=== PATIENT | female | born 1985 | race Caucasian/White ===

== ENCOUNTER 2019-02-09 17:41 | Emergency (ER) | payer MEDICAID ==
[~2019-02-09] VITALS: Ht 157.5 cm; Wt 79.5 kg
[~2019-02-09 17:41] MED LIST: HYDR-4353 PO; IBUP-1985 PO
[2019-02-09] MEDS ORDERED: ibuprofen tablet 400 MG TABLET PO ONE (19:55)
[2019-02-09 20:03] VITALS: BP 132/79
== END 2019-02-09 20:06 | disposition home or self-care (01) ==
LOC: ER 17:41
DX: M79.641 Pain in right hand (principal); G89.29 Other chronic pain; Z90.49 Acquired absence of other specified parts of digestive tract; Z56.0 Unemployment, unspecified; Z79.899 Other long term (current) drug therapy; W23.0XXA Caught, crushed, jammed, or pinched between moving objects, initial encounter; Y93.89 Activity, other specified; Y92.89 Other specified places as the place of occurrence of the external cause; Y99.8 Other external cause status
CPT/HCPCS: 29125; 73130; 99283

== ENCOUNTER 2020-08-28 16:19 | Inpatient (IN) | payer MEDICAID ==
[~2020-08-28] VITALS: Ht 157.5 cm; Wt 79.1 kg
[2020-08-28] MEDS ORDERED: acetaminophen 325mg tablet PO ONE (16:30)
[2020-08-28] MEDS ORDERED: CefTRIAXone 2gm/D5W 50ml BAG 50 ML IV ONE (16:40)
[2020-08-28] MEDS ORDERED: vancomycin/NS 1 GM ADD-VANTAGE 250 ML IV ONE (16:40)
[2020-08-28] MEDS ORDERED: ACET-2119 PO (17:31)
[2020-08-28] MEDS ORDERED: PNV1TABL75 PO (17:31)
[2020-08-28 17:35] LABS: BASOPHILS % (AUTO) 0.2 % (0-1); EOSINOPHILS % (AUTO) 0.3 % (0-6); HEMOGLOBIN 10.1 g/dl (12.0-16.0); LYMPHOCYTES # (AUTO) 1.6 X10'3 (1.1-4.8); LYMPHOCYTES % (AUTO) 21.7 % (21-51); MEAN CORPUSCULAR HEMOGLOBIN 28.5 PG (27.0-31.0); MEAN CORPUSCULAR HGB CONC 33.8 g/dL (33.0-36.5); MEAN CORPUSCULAR VOLUME 84.4 FL (78-98); MEAN PLATELET VOLUME 7.9 FL (7.4-10.4); MONOCYTES # (AUTO) 0.4 X10'3 (0-0.9); NEUTROPHILS # (AUTO) 5.4 X10'3 (1.8-7.7); NEUTROPHILS % (AUTO) 71.8 % (42-75); PLATELET COUNT 233 X10'3 (140-440); RED BLOOD COUNT 3.55 X10'6 (4.20-5.60); RED CELL DISTRIBUTION WIDTH 15.2 % (11.5-14.5); WHITE BLOOD COUNT 7.5 X10'3 (4.5-11.0)
[2020-08-28 17:53] LABS: ALANINE AMINOTRANSFERASE 11 U/L (12-78); ALBUMIN 2.7 G/DL (3.4-5.0); ALBUMIN/GLOBULIN RATIO 0.6 (1.1-1.5); ALKALINE PHOSPHATASE 83 IU/L (46-116); ANION GAP 13 (8-16); ASPARTATE AMINO TRANSFERASE 7 U/L (10-37); BILIRUBIN,TOTAL 0.1 MG/DL (0.1-1.0); BLOOD UREA NITROGEN 12 MG/DL (7-18); CALCIUM 8.8 MG/DL (8.5-10.1); CHLORIDE 104 MMOL/L (99-107); CREATININE 0.75 MG/DL (0.40-0.90); GLUCOSE 117 MG/DL (70-104); MAGNESIUM 1.9 MG/DL (1.5-2.4); POTASSIUM 3.1 MMOL/L (3.5-5.1); SODIUM 139 MMOL/L (135-145); TOTAL CARBON DIOXIDE 22.1 MMOL/L (24-32); eGFR 88 ML/MIN
[2020-08-28] MEDS ORDERED: potassium Cl 20 mEq SR tablet PO STA (17:58)
[2020-08-28] MEDS ORDERED: morphine 2 MG/ML inj. syringe IV PRN (19:05)
[2020-08-28 20:00] VITALS: BP 117/76
[2020-08-28] MEDS: normal saline 1000ml 1,000 ML IV SCH (20:14)
[2020-08-28] MEDS ORDERED: ringers solution, lacted 1,000 ML IV ONE (20:45)
[2020-08-29] VITALS (8 sets, daily range): BP systolic 115–150; BP diastolic 58–88
[2020-08-29] MEDS ORDERED: potassium CL 10mEq/100ml bag 100 ML IV PRN (01:15)
[2020-08-29] MEDS ORDERED: potassium Cl 20 mEq SR tablet PO PRN (01:15)
[2020-08-29] MEDS: acetaminophen 325mg tablet PO PRN ×2 (03:13→14:15)
[2020-08-29] MEDS ORDERED: vancomycin/NS 1 GM ADD-VANTAGE 250 ML IV SCH (05:00)
[2020-08-29] MEDS: normal saline 1000ml 1,000 ML IV SCH ×2 (05:05→20:31)
--- NOTE | 2020-08-29 06:30 | NUR ---
Patient in room [facility]TH[facility] 4023. I have received report from ART FALCON and had the opportunity to ask questions and assume patient care.
--- NOTE | 2020-08-29 06:31 | NUR ---
Problems reprioritized. Patient report given, questions answered & plan of care reviewed with Leonora FALCON. Addendum: 08/29/20 at 0631 by Jaclyn Michel RN Amended: Links added.
--- NOTE | 2020-08-29 07:37 | NUR ---
checked bs for surgery. bs=81
[2020-08-29] MEDS ORDERED: ondansetron/PF 4mg/2ml inj IV PRN (07:45)
[2020-08-29] MEDS ORDERED: morphine 2 MG/ML inj. syringe IV PRN (07:45)
[2020-08-29] MEDS ORDERED: acetaminophen 1,000mg/100ml IV 100 ML IV PRN (07:45)
[2020-08-29] MEDS ORDERED: ringers solution, lacted 1,000 ML IV SCH (07:45)
[2020-08-29] MEDS ORDERED: meperidine/PF 25mg/ml syringe IV PRN (07:45)
[2020-08-29] MEDS: K and/or MAG REPLACEMENT MC SCH ×2 (08:00→20:00)
[2020-08-29] MEDS ORDERED: CefTRIAXone/D5W-Rocephin 1gm 50 ML IV SCH (08:00)
[2020-08-29] MEDS ORDERED: BUPIVAcaine/PF 7.5mg/ml (0.75%) 10ml vial ONE ×2 (08:00→08:33)
[2020-08-29] MEDS ORDERED: BUPIVAcaine/PF 2.5 mg/ml (0.25%) 30ml vial ONE (08:28)
[2020-08-29] MEDS ORDERED: LIDOcaine 1%/PF 5ML 10 MG/ML VIAL ONE (08:33)
[2020-08-29] MEDS ORDERED: LIDOcaine 2% (20mg/ml) 5ml vial ONE ×3 (08:33)
[2020-08-29] MEDS ORDERED: sodium bicarbonate (8.4%) inj. 1 MEQ/ML ML ONE (08:33)
--- NOTE | 2020-08-29 09:18 | NUR ---
ALL CRITERIA FOR TRANSFER TO THE FLOOR HAS BEEN ACHIEVED. REPORT GIVEN AND ALL QUESTIONS ANSWERED, VSS. BED LOW 2 RAILS UP, CALL LIGHT PRESENT AND PATIENT HOOKED UP TO ALL LINES AND VSS. PATIENTS RN PRESENT TO ACCEPT CARE. EZEKIEL ATKINSON AWARE PATIENT HAS ARRIVED. NO DRAINAGE. ELEVATED UPON A PILLOW- WRIST ABOVE ELBOW, ELBOW ABOVE HEART. NO C.O. PAIN. Addendum: 08/29/20 at 0940 by Errol Forman - EZEKIEL FALCON Amended: Links added.
[2020-08-29] MEDS: PNV NO.63/IRON,CARBONYL/FA/DHA 1 EACH CAPSULE PO SCH (10:43)
[2020-08-29] MEDS: clindamycin 300mg/D5W 50mL 50 ML IV SCH ×2 (14:18→20:27)
[2020-08-29] MEDS: lactobacillus rhamnosus 10,000 MMU CELLS/CAPSULE PO SCH (20:41)
[2020-08-30] MEDS: normal saline 1000ml 1,000 ML IV SCH ×3 (01:05→20:48)
[2020-08-30] MEDS: acetaminophen 325mg tablet PO PRN ×3 (02:19→20:47)
[2020-08-30] MEDS: clindamycin 300mg/D5W 50mL 50 ML IV SCH ×4 (02:21→19:57)
[2020-08-30] MEDS: morphine 2 MG/ML inj. syringe IV PRN ×2 (03:31→08:26)
[2020-08-30 06:00] VITALS: BP 117/68
--- NOTE | 2020-08-30 06:38 | NUR ---
Patient in room ORTH[facility] 4023. I have received report from Dana Elise and had the opportunity to ask questions and assume patient care.
--- NOTE | 2020-08-30 06:58 | NUR ---
Patient in room [facility]TH[facility] 4023. I have received report from Gwen FALCON and had the opportunity to ask questions and assume patient care.
[2020-08-30] MEDS: K and/or MAG REPLACEMENT MC SCH ×2 (08:00→20:00)
[2020-08-30] MEDS: lactobacillus rhamnosus 10,000 MMU CELLS/CAPSULE PO SCH ×2 (08:05→19:57)
[2020-08-30] MEDS: PNV NO.63/IRON,CARBONYL/FA/DHA 1 EACH CAPSULE PO SCH (08:05)
[2020-08-30 11:30] VITALS: BP 129/73
--- NOTE | 2020-08-30 15:59 | NUR ---
PAGER ID: [phone] MESSAGE: Savannah Enamorado [phone]- Dr Muñoz states he is oK for you to DC her. Pt is to go hm with 10x of antibiotics, Keflex 500 mg QID. Follow up with Dr Benitez 1week. Thank you . Gwen herring [phone]
[2020-08-30 18:00] VITALS: BP 134/70
--- NOTE | 2020-08-30 18:20 | NUR ---
Patient in room [facility]THO 4023. I have received report from EZEKIEL Hidalgo and had the opportunity to ask questions and assume patient care.
--- NOTE | 2020-08-30 18:42 | NUR ---
Problems reprioritized. Patient report given, questions answered & plan of care reviewed with Melissa FALCON.
[2020-08-30] MEDS: potassium Cl 20 mEq SR tablet PO PRN (20:15)
[2020-08-30 22:00] VITALS: BP 125/70
[2020-08-31] MEDS: potassium Cl 20 mEq SR tablet PO PRN (02:19)
[2020-08-31] MEDS: clindamycin 300mg/D5W 50mL 50 ML IV SCH (02:20)
[2020-08-31 06:00] VITALS: BP 114/61
--- NOTE | 2020-08-31 06:28 | NUR ---
Problems reprioritized. Patient report given, questions answered & plan of care reviewed with EZEKIEL Banerjee.
[2020-08-31] MEDS: lactobacillus rhamnosus 10,000 MMU CELLS/CAPSULE PO SCH (08:27)
[2020-08-31] MEDS: PNV NO.63/IRON,CARBONYL/FA/DHA 1 EACH CAPSULE PO SCH (08:27)
--- NOTE | 2020-08-31 08:40 | NUR ---
Page Sent promotional table spacer PAGER ID: [phone] MESSAGE: [phone] Savannah Enamorado Pt dressed ready to be discharged or go AMA she says. IV is out so shes ready for PO abx at home. #[id number] Lavonne (130 character message out of a maximum of [phone])
[2020-08-31] MEDS ORDERED: cephalexin 500mg capsule PO ONE (08:50)
[2020-08-31] MEDS ORDERED: LACT1CAP26 PO (09:16)
[2020-08-31] MEDS ORDERED: AMOX-580 PO (09:16)
[2020-08-31 10:00] VITALS: BP 119/65
== END 2020-08-31 10:00 | disposition home or self-care (01) | DRG 952 ==
LOC: ER 16:19 → ED HOLD 19:03 → EDBEDREQ 19:27 → ORTHO 4S 19:58
PROVIDERS: ADMIT Internal Medicine; ATTEND Family Medicine
PROC: 3E0T3BZ Introduction of Anesthetic Agent into Peripheral Nerves and Plexi, Percutaneous Approach (ICD-10-PCS; 2020-08-29)
PROC: 0J9K0ZZ Drainage of Left Hand Subcutaneous Tissue and Fascia, Open Approach (ICD-10-PCS; principal; 2020-08-29 07:55)
DX: O99.712 Diseases of the skin and subcutaneous tissue complicating pregnancy, second trimester (principal); O26.892 Other specified pregnancy related conditions, second trimester; S61.452A Open bite of left hand, initial encounter; E87.6 Hypokalemia; L02.512 Cutaneous abscess of left hand; L03.114 Cellulitis of left upper limb; O99.282 Endocrine, nutritional and metabolic diseases complicating pregnancy, second trimester; G89.29 Other chronic pain; M54.9 Dorsalgia, unspecified; W54.0XXA Bitten by dog, initial encounter; Z3A.19 19 weeks gestation of pregnancy; Z90.49 Acquired absence of other specified parts of digestive tract; Y93.89 Activity, other specified; Y92.89 Other specified places as the place of occurrence of the external cause; Y99.8 Other external cause status; Z79.899 Other long term (current) drug therapy
CPT/HCPCS: 36415; 73130; 80053; 82948; 83605; 83735; 84132; 84145; 85025; 87040; 87070; 87075; 87081; 96365; 99285; A4615; A4618; A6222; A6449; A7000; G0378; J0696; J2001; J2270; J3370; J3490; J7030; J7120

== ENCOUNTER 2021-11-17 10:05 | Outpatient (CLI) | payer MEDICAID ==
[~2021-11-17 10:05] MED LIST changes: +ACET-2119 PO; -HYDR-4353 PO; -IBUP-1985 PO; +LACT1CAP26 PO; +PNV1TABL75 PO
[2021-11-17] MEDS ORDERED: NO HOME MEDS (11:06)
[2021-11-17 11:38] LABS: BASOPHILS % (AUTO) 0.6 % (0-1); EOSINOPHILS % (AUTO) 0.1 % (0-6); LYMPHOCYTES % (AUTO) 27.2 % (21-51); MEAN CORPUSCULAR HEMOGLOBIN 22.9 PG (27.0-31.0); MEAN CORPUSCULAR HGB CONC 31.6 g/dL (33.0-36.5); MEAN CORPUSCULAR VOLUME 72.7 FL (78-98); MEAN PLATELET VOLUME 8.1 FL (7.4-10.4); MONOCYTES # (AUTO) 0.6 X10'3 (0-0.9); MONOCYTES % (AUTO) 16.4 % (2-12); NEUTROPHILS # (AUTO) 2.1 X10'3 (1.8-7.7); NEUTROPHILS % (AUTO) 55.7 % (42-75); PRE OP HEMATOCRIT 35.6 % (35.0-45.0); PRE OP HEMOGLOBIN 11.2 g/dL (12.0-16.0); PRE OP PLATELET COUNT 283 X10'3 (140-440); RED CELL DISTRIBUTION WIDTH 18.1 % (11.5-14.5)
[2021-11-17 11:43] LABS: URINE HCG NEGATIVE (NEG)
[2021-11-17 12:01] LABS: ALBUMIN 3.8 G/DL (3.4-5.0); ALBUMIN/GLOBULIN RATIO 0.9 (1.1-1.5); ALKALINE PHOSPHATASE 98 IU/L (46-116); BLOOD UREA NITROGEN 10 MG/DL (7-18); BUN/CREATININE RATIO 10.9 (6.6-38.0); CALCIUM 8.3 MG/DL (8.5-10.1); CHLORIDE 105 MMOL/L (99-107); CREATININE 0.92 MG/DL (0.40-0.90); PRE OP ALT 23 U/L (30-65); PRE OP ANION GAP 11 (8-16); PRE OP AST 17 U/L (10-37); PRE OP BILIRUB, TOTAL 0.1 MG/DL (0.0-1.0); PRE OP GLUCOSE 85 MG/DL (70-104); PRE OP POTASSIUM 3.4 MMOL/L (3.4-5.1); PRE OP SODIUM 140 MMOL/L (135-145); TOTAL CARBON DIOXIDE 24.5 MMOL/L (24-32); eGFR 69 ML/MIN
[2021-11-17 12:02] LABS: CLARITY,URINE Bloody (Clear); COLOR,URINE RED (Yellow); UA COLLECTION TYPE CLN CATCH MIDSTREAM
[2021-11-17 12:12] LABS: RBC,URINE TNTC /HPF (0-2)
[2021-11-17 12:13] LABS: BACTERIA,URINE 2+ /HPF (Neg); SQUAMOUS EPITHELIAL CELL,UR MODERATE /LPF (FEW)
[2021-11-17 14:22] LABS: PLATELET ESTIMATE NORMAL; TOTAL CELLS COUNTED 100
[2021-11-17 14:23] LABS: ANISOCYTOSIS 2+; LARGE PLATELETS FEW; MICROCYTOSIS 1+
== END 2021-11-17 23:59 | disposition home or self-care (01) ==
LOC: PRE-OP 10:05 → EDSTATUS 11-24 12:45
PROVIDERS: ATTEND Obstetrics & Gynecology Obstetrics
DX: U07.1 COVID-19 (principal)
CPT/HCPCS: 36415; 71046; 80053; 81001; 81025; 85007; 85025; 86870; 86880; 86885; 86900; 86901; 86905; 87088; 93005; U0003; U0005; 86902

== ENCOUNTER 2022-02-23 10:03 | Day surgery (SDC) | payer MEDICAID ==
[2022-02-16 14:27] LABS: BASOPHILS % (AUTO) 0.7 % (0-1); EOSINOPHILS % (AUTO) 0.3 % (0-6); LYMPHOCYTES # (AUTO) 1.7 X10'3 (1.1-4.8); LYMPHOCYTES % (AUTO) 45.5 % (21-51); MEAN CORPUSCULAR HEMOGLOBIN 23.9 PG (27.0-31.0); MEAN CORPUSCULAR VOLUME 74.8 FL (78-98); MEAN PLATELET VOLUME 7.9 FL (7.4-10.4); MONOCYTES # (AUTO) 0.3 X10'3 (0-0.9); NEUTROPHILS # (AUTO) 1.7 X10'3 (1.8-7.7); NEUTROPHILS % (AUTO) 44.5 % (42-75); PRE OP HEMATOCRIT 34.8 % (35.0-45.0); PRE OP HEMOGLOBIN 11.2 g/dL (12.0-16.0); PRE OP PLATELET COUNT 315 X10'3 (140-440); RED BLOOD COUNT 4.66 X10'6 (4.20-5.60); RED CELL DISTRIBUTION WIDTH 16.6 % (11.5-14.5)
[2022-02-16 14:36] LABS: CLARITY,URINE SLIGHTLY CLOUDY (Clear); COLOR,URINE YELLOW (Yellow); GLUCOSE, URINE NEGATIVE (Neg); KETONES,URINE NEGATIVE (Neg); LEUKOCYTE ESTERASE ,URINE TRACE (Neg); NITRITES, URINE NEGATIVE (Neg); OCCULT BLOOD,URINE NEGATIVE (Neg); PROTEIN,URINE NEGATIVE (Neg); UROBILINOGEN,URINE 0.2 E.U/dL (0.2-1.0)
[2022-02-16 14:38] LABS: UA COLLECTION TYPE CLN CATCH MIDSTREAM
[2022-02-16 14:47] LABS: ALBUMIN 3.8 G/DL (3.4-5.0); ALBUMIN/GLOBULIN RATIO 0.9 (1.1-1.5); ALKALINE PHOSPHATASE 88 IU/L (46-116); BLOOD UREA NITROGEN 13 MG/DL (7-18); BUN/CREATININE RATIO 13.8 (6.6-38.0); CALCIUM 8.4 MG/DL (8.5-10.1); CHLORIDE 105 MMOL/L (99-107); CREATININE 0.94 MG/DL (0.40-0.90); PRE OP ALT 18 U/L (30-65); PRE OP ANION GAP 10 (8-16); PRE OP AST 13 U/L (10-37); PRE OP BILIRUB, TOTAL 0.3 MG/DL (0.0-1.0); PRE OP GLUCOSE 86 MG/DL (70-104); PRE OP POTASSIUM 3.8 MMOL/L (3.4-5.1); PRE OP SODIUM 137 MMOL/L (135-145); TOTAL CARBON DIOXIDE 22.5 MMOL/L (24-32); eGFR 68 ML/MIN
[2022-02-16 14:55] LABS: BACTERIA,URINE 1+ /HPF (Neg); MUCUS STRANDS FEW /LPF (Neg); RBC,URINE 0-2 /HPF (0-2); SQUAMOUS EPITHELIAL CELL,UR MODERATE /LPF (FEW); WBC,URINE 0-4 /HPF (0-4)
[2022-02-16 15:02] LABS: HCG SERUM QL NEGATIVE
[~2022-02-23] VITALS: Ht 157.5 cm; Wt 83.2 kg
[~2022-02-23 10:03] MED LIST changes: -ACET-2119 PO; -LACT1CAP26 PO; +NO HOME MEDS; -PNV1TABL75 PO; +ceFOXitin 2GM-NS 100mL ADDvant 100 ML IV ONE; +famotidine 20mg tablet PO ONE; +ringers solution, lacted 1,000 ML IV SCH
[2022-02-23 10:30] VITALS: BP 115/80
[2022-02-23] MEDS ORDERED: propofol inj 20 ML IV ONE (11:37)
[2022-02-23] MEDS ORDERED: BUPIVAcaine 0.5% inj/PF 30 ML ONE ×2 (11:38→11:39)
[2022-02-23] MEDS ORDERED: midazolam 1 mg/ML 2ml injection ONE (12:11)
[2022-02-23] MEDS ORDERED: fentaNYL/PF 50MCG/1 ML 2ML syringe ONE (12:11)
[2022-02-23] MEDS ORDERED: rocuronium 10mg/ml inj IV ONE (12:13)
[2022-02-23] MEDS ORDERED: ondansetron/PF 4mg/2ml inj ONE (12:23)
[2022-02-23] MEDS ORDERED: meperidine/PF 25mg/ml syringe IV PRN ×3 (12:55)
[2022-02-23] MEDS ORDERED: ondansetron/PF 4mg/2ml inj IV PRN (12:55)
[2022-02-23] MEDS ORDERED: morphine 2 MG/ML inj. syringe IV PRN (12:55)
[2022-02-23] MEDS ORDERED: ringers solution, lacted 1,000 ML IV SCH (12:55)
[2022-02-23] MEDS ORDERED: proCHLORperazine 10 MG/2 ml inj IV PRN (12:55)
[2022-02-23] MEDS ORDERED: morphine 4 MG/ML inj SYRINge IV PRN (12:55)
[2022-02-23] MEDS ORDERED: meperidine/PF 25mg/ml syringe ONE (12:56)
[2022-02-23] MEDS ORDERED: ketorolac trometh. 30mg/ml inj. ONE (13:08)
[2022-02-23 13:18] VITALS: BP 122/76
--- NOTE | 2022-02-23 13:18 | NUR ---
Received from OR via , accompanied by Anesthesiologist DR BARRETT and report given by Anesthesiolgist. AWAKENS TO VOICE. VITALS STABLE. DRESSING DI. RANJAN PAIN. HAS TWO SM INCISIONS WITH DERMABOND TO THE ABD.
[2022-02-23 13:28] VITALS: BP 111/66
[2022-02-23 13:38] VITALS: BP 107/70
[2022-02-23 13:48] VITALS: BP 112/74
[2022-02-23 13:58] VITALS: BP 120/77
--- NOTE | 2022-02-23 14:18 | NUR ---
AWAKE AND ORIENTED. VITALS STABLE. DRESSINGS DI. RANJAN PAIN. HOME WITH HER SPOUSE AT THIS TIME.
== END 2022-02-23 14:18 | disposition home or self-care (01) ==
LOC: PAS 10:03
PROVIDERS: ATTEND Obstetrics & Gynecology Obstetrics
DX: Z30.2 Encounter for sterilization (principal); D64.9 Anemia, unspecified; G43.909 Migraine, unspecified, not intractable, without status migrainosus; E66.9 Obesity, unspecified; Z68.34 Body mass index [BMI] 34.0-34.9, adult; Z20.822 Contact with and (suspected) exposure to COVID-19; Z79.899 Other long term (current) drug therapy; Z98.890 Other specified postprocedural states
CPT/HCPCS: 36415; 58670; 80053; 81001; 82948; 84703; 85025; 86870; 86885; 86900; 86901; 86902; 86905; 87088; J0694; J1885; J2175; J2250; J2405; J2704; J3010; J3490; J7030; J7120; S0020; U0003; U0005; Z7506; Z7508; Z7512; A4618; A7000